=== PATIENT | female | born 1950 | race Caucasian/White ===

== ENCOUNTER 2020-01-17 04:55 | Day surgery (SDC) | payer OTHER, BC ==
--- OUTSIDE RECORDS SUMMARY | 2020-01-11 20:49 | XMS ---
:1950 Author Organization [facility] Support Name Relationship Address Phone RE Unavailable Unavailable Unavailable ORACIO PETTY [address] [place] [address] Re-disclosure Warning The records that you are about to access may contain information from federally- assisted alcohol or drug abuse programs. If such information is present, then the following federally mandated warning applies: This information has been disclosed to you from records protected by federal confidentiality rules (42 CFR part 2). The federal rules prohibit you from making any further disclosure of this information unless further disclosure is expressly permitted by the written consent of the person to whom it pertains or as otherwise permitted by 42 CFR part 2. A general authorization for the release of medical or other information is NOT sufficient for this purpose. The Federal rules restrict any use of the information to criminally investigate or prosecute any alcohol or drug abuse patient.The records that you are about to access may contain highly sensitive health information, the redisclosure of which is protected by Article 27-F of the [facility] Public Health law. If you continue you may haveaccess to information: Regarding HIV / AIDS; Provided by facilities licensed or operated by the [facility] Office of Mental Health; or Provided by the [facility] Office for People With Developmental Disabilities. If such information is present, then the following [facility] mandated warning applies: This information has been disclosed to you from confidential records which are protected by state law. State law prohibits you from making any further disclosure of this information without the specific written consent of the person to whom it pertains, or as otherwise permitted by law. Any unauthorized further disclosure in violation of state law may result in a fine or nursing home sentence or both. A general authorization for the release of medical or other information is NOT sufficient authorization for further disclosure. Insurance Providers Payer name Policy type Policy ID Covered Covered constitution party's Policy P volodymyr / Coverage constitution party ID relationship to [place] [facility] ormation type martinez [facility] [id number] SP [id number] OUTPT PPO [id number] SP [id number] MEDICARE [id number] SP [id number] A
[2020-01-15 13:03] VITALS: BMI 25.7
--- OUTSIDE RECORDS SUMMARY | 2020-01-17 04:58 | XMS ---
:1950 Author Organization [facility] Support Name Relationship Address Phone RE, RETIRED Unavailable Unavailable Unavailable RE Unavailable Unavailable Unavailable ORACIO PETTY [address] [facility] [place] [address] Re-disclosure Warning The records that you are [...] is protected by Article 27-F of the [facility] Public Health law. If you continue you may haveaccess to information: Regarding HIV / AIDS; Provided by facilities licensed or operated by the [facility] Office of Mental Health; or Provided by the [facility] Office for People With Developmental Disabilities. If such information is present, then the following [facility] mandated warning applies: This information has been [...] law may result in a fine or retirement sentence or both. A general authorization for the release of medical or other information is NOT sufficient authorization for further disclosure. Insurance Providers Payer name Policy type Policy ID Covered Covered green party's Policy P volodymyr / Coverage green party ID relationship to [place] [facility] orm[employer] type martinez GHI CBP [id number] SP [id number] OUTPT BC PPO [id number] SP [id number] MEDICARE [id number] SP [id number] GHI CBP [id number] SP [id number] OUTPT BC PPO [id number] SP [id number] MEDICARE [id number] SP [id number] A Results ID Date Data Source [id number] 01/12/2020 09:20:00 AM EDT [facility] Name Value Range Interpretation Description Data Sup porting Code Source(s) Document(s ) SARS [facility] coronavirus 2 RNA This lab was ordered by [facility] and reported by [facility]. Procedure
[2020-01-17 13:11] VITALS: BP 114/53; PULSE 53; TEMP 98
--- NOTE | 2020-01-18 16:23 | PATH ---
Surgical Pathology Report Patient Name: SUSAN PETTY [facility]. Rec. #: [id number] /Age/Gender: 1950 (Age: 69) / F Account: [id number] Location: ASU-ENDOSCOPY Taken: 01/17/2020 Received: 01/17/2020 Reported: 01/18/2020 Physicians: Kena House M.D. Specimen(s) Received A: DUODENUM SECOND PORTION AND BULB B: ANTRUM C: GE JUNCTION D: POLYP SIGMOID E: ILEUM ULCER F: POLYP RIGHT COLON G: POLYPS HEPATIC FLEXURE H: POLYP RECTUM Clinical History GERD, hiatal hernia, occult bleeding Postoperative diagnosis: Hiatal hernia, diverticulosis, colon polyps, ileal ulcer Final Diagnosis A. DUODENUM, SECOND PORTION AND BULB, BIOPSY: DUODENAL MUCOSA WITHOUT SIGNIFICANT PATHOLOGIC FINDINGS. B. STOMACH, ANTRUM, BIOPSY: GASTRIC ANTRAL MUCOSA WITH MILD CHRONIC GASTRITIS. IMMUNOHISTOCHEMICAL STAIN FOR H. PYLORI IS NEGATIVE. C. GE JUNCTION, BIOPSY: SQUAMOCOLUMNAR MUCOSA WITH MILD CHRONIC INFLAMMATION AND CHANGES OF MODERATE REFLUX ESOPHAGITIS. NO INTESTINAL METAPLASIA OR DYSPLASIA IDENTIFIED. D. SIGMOID COLON, POLYP, POLYPECTOMY: HYPERPLASTIC POLYP E. ILEUM, ULCER, BIOPSY: ILEAL MUCOSA WITH PROMINENT LYMPHOID AGGREGATES. F. COLON, RIGHT, POLYP, POLYPECTOMY: TUBULAR ADENOMA. G. HEPATIC FLEXURE, POLYPS, POLYPECTOMY: TUBULAR ADENOMA. POLYPOID COLONIC MUCOSA WITH PROMINENT LYMPHOID AGGREGATE. H. RECTUM, POLYP, POLYPECTOMY: HYPERPLASTIC POLYP. Positive and negative controls (internal if applicable) show appropriate results. Electronically Signed Misty Dawn M.D. Gross Description A. Received in formalin, labeled "biopsy duodenum second portion and bulb" are 5 craven, irregular portions of soft tissue ranging from 0.3-0.5 cm. in greatest dimension. The specimens are submitted in toto in one cassette. B. Received in formalin, labeled "biopsy antrum" are 3 craven, irregular portions of soft tissue ranging from 0.1-0.5 cm. in greatest dimension. The specimens are submitted in toto in one cassette. C. Received in formalin, labeled "biopsy GE junction" is a craven, irregular portion of soft tissue measuring 0.4 cm. in greatest dimension. The specimen is submitted in toto in one cassette. D. Received in formalin, labeled "polyp sigmoid" are 2 craven, irregular portions of soft tissue measuring 0.1 and 0.3 cm. in greatest dimension. The specimens are submitted in toto in one cassette. E. Received in formalin, labeled "biopsy ileum ulcer" are 2 craven, irregular portions of soft tissue measuring 0.2 and 0.3 cm. in greatest dimension. The specimens are submitted in toto in one cassette. F. Received in formalin, labeled "polyp right colon" are 5 craven, irregular portions of soft tissue ranging from 0.1-0.4 cm. in greatest dimension. The specimens are submitted in toto in one cassette. G. Received in formalin, labeled "polyp hepatic flexure" are 3 craven, irregular portions of soft tissue averaging 0.3 cm. in greatest dimension. The specimens are submitted in toto in one cassette. H. Received in formalin, labeled "polyp rectum" is a craven, irregular portion of soft tissue measuring 0.2 cm. in greatest dimension. The specimen is submitted in toto in one cassette. DL01/17/2020 saudi01/17/2020
== END 2020-01-17 12:05 | disposition home or self-care (01) ==
LOC: JASU-ENDO 04:55
PROVIDERS: ATTEND Internal Medicine Gastroenterology
PROC: 0DBN8ZX Excision of Sigmoid Colon, Via Natural or Artificial Opening Endoscopic, Diagnostic (ICD-10-PCS; 2020-01-17)
PROC: 0DBL8ZX Excision of Transverse Colon, Via Natural or Artificial Opening Endoscopic, Diagnostic (ICD-10-PCS; 2020-01-17)
PROC: 0DBP8ZX Excision of Rectum, Via Natural or Artificial Opening Endoscopic, Diagnostic (ICD-10-PCS; 2020-01-17)
PROC: 0DB98ZX Excision of Duodenum, Via Natural or Artificial Opening Endoscopic, Diagnostic (ICD-10-PCS; 2020-01-17)
PROC: 0DB48ZX Excision of Esophagogastric Junction, Via Natural or Artificial Opening Endoscopic, Diagnostic (ICD-10-PCS; 2020-01-17)
PROC: 0DBK8ZX Excision of Ascending Colon, Via Natural or Artificial Opening Endoscopic, Diagnostic (ICD-10-PCS; principal; 2020-01-17 10:00)
DX: Z12.11 Encounter for screening for malignant neoplasm of colon (principal); K63.3 Ulcer of intestine; D12.2 Benign neoplasm of ascending colon; D12.5 Benign neoplasm of sigmoid colon; D12.3 Benign neoplasm of transverse colon; K64.8 Other hemorrhoids; K22.10 Ulcer of esophagus without bleeding; K44.9 Diaphragmatic hernia without obstruction or gangrene; K29.50 Unspecified chronic gastritis without bleeding; K62.1 Rectal polyp
CPT/HCPCS: 88305-TC; 88342-TC

== ENCOUNTER 2023-03-25 02:58 | Emergency (ER) | payer OTHER, BC ==
[2023-03-25 03:10] VITALS: BMI 27.4
[2023-03-25] MEDS ORDERED: morphine CARPU-JECT 4 MG/1 ML DISP.SYRIN IVPUSH ONE ×2 (04:44→06:12)
[2023-03-25] MEDS ORDERED: morphine SULFATE 4 MG/ML VIAL ONE ×2 (05:27→06:13)
[2023-03-25 05:39] LABS: URINE APPEARANCE CLEAR; URINE BILIRUBIN NEGATIVE (NEGATIVE); URINE COLOR YELLOW; URINE GLUCOSE (UA) NEGATIVE (NEGATIVE); URINE KETONE NEGATIVE (NEGATIVE); URINE LEUK ESTERASE NEGATIVE (NEGATIVE); URINE NITRITE NEGATIVE (NEGATIVE); URINE PROTEIN NEGATIVE (NEGATIVE); URINE UROBILINOGEN 0.2 mg/dL (0.2-1.0)
[2023-03-25 06:46] LABS: BASO % 0.5 % (0-2.0); EOS % 2.4 % (0-4.5); HEMATOCRIT 41.8 % (32.4-45.2); HEMOGLOBIN 13.9 GM/dL (10.7-15.3); LYMPH % 24.2 % (8-40); MCH 30.5 pg (25.7-33.7); MCHC 33.3 g/dl (32.0-36.0); MEAN CELL VOLUME 91.8 fl (80-96); MEAN PLT VOLUME 8.5 fl (7.5-11.1); MONO % 6.1 % (3.8-10.2); NEUT % 66.8 % (42.8-82.8); PLATELET COUNT 206 10^3/uL (134-434); RBC 4.55 M/mm3 (3.60-5.2); RDW 13.6 % (11.6-15.6); WHITE BLOOD COUNT 6.5 K/mm3 (4.0-10.0)
[2023-03-25 06:59] LABS: POTASSIUM 4.7 mmol/L (3.5-5.1)
[2023-03-25 07:03] LABS: ALBUMIN 3.6 g/dl (3.4-5.0); BLOOD UREA NITROGEN 15.2 mg/dL (7-18); CALCIUM 8.9 mg/dL (8.5-10.1)
[2023-03-25 07:06] LABS: CREATININE 0.7 mg/dL (0.55-1.3)
[2023-03-25 07:07] LABS: BILIRUBIN,TOTAL 0.6 mg/dL (0.2-1); INR 1.01 (0.83-1.09); PROTHROMBIN TIME (PATIENT) 11.7 SEC (9.7-13.0); TOT PROT 7.2 g/dl (6.4-8.2)
[2023-03-25 07:10] LABS: ACTIVATED PTT 31.5 SECONDS (25.2-36.5)
[2023-03-25] MEDS ORDERED: FAMOTIDINE 20 MG/50 ML IVPB 20 MG/50 ML MG IVPB ONE ×2 (11:51→12:15)
[2023-03-25] MEDS ORDERED: MAG HYDROX/AL HYDROX/SIMETH 30 ML UNIT-DOSE CUP PO ONE (12:17)
[2023-03-25] MEDS ORDERED: ACETAMINOPHEN 1000 MG/100 ML BAG IVPB ONE (12:17)
[2023-03-25] MEDS ORDERED: ACETAMINOPHEN INJECTION 100 ML IVPB ONE (12:29)
[2023-03-25] MEDS ORDERED: MAG HYDROX/AL HYDROX/SIMETH 30 ML UNIT-DOSE CUP ONE (12:29)
[2023-03-25] MEDS ORDERED: GLYCERIN 1 RECTAL SUPPOSITORY, ADULT PR ONE (13:23)
[2023-03-25] MEDS ORDERED: GLYCERIN 1 RECTAL SUPPOSITORY, PEDIATRIC RC ONE (13:28)
[2023-03-25 13:53] VITALS: BP 117/69; PULSE 64; RESP 20; TEMP 98.1
== END 2023-03-25 14:09 | disposition home or self-care (01) ==
LOC: JER 02:58
PROC: 3E033GC Introduction of Other Therapeutic Substance into Peripheral Vein, Percutaneous Approach (ICD-10-PCS; principal; 2023-03-25)
PROC: 3E033NZ Introduction of Analgesics, Hypnotics, Sedatives into Peripheral Vein, Percutaneous Approach (ICD-10-PCS; 2023-03-25)
PROC: 3E033GC Introduction of Other Therapeutic Substance into Peripheral Vein, Percutaneous Approach (ICD-10-PCS; 2023-03-25)
DX: R10.11 Right upper quadrant pain (principal); K59.00 Constipation, unspecified
CPT/HCPCS: 36415; 74177-TC; 76705-TC; 80053; 81003; 83605; 83690; 84484; 85025; 85610; 85730; 86850; 86900; 86901; 87086; 93005; 93010; 99285-25; Q9967